=== PATIENT | male | born 1945 | race Caucasian/White ===

== ENCOUNTER 2017-09-08 14:45 | Outpatient (RCR) | payer OTHER ==
[~2017-09-08 14:45] MED LIST: PREDNISONE20 MG PO; ZITHROMAX Z PA250 MG PO
== END 2017-09-11 09:45 | disposition home or self-care (01) ==
LOC: WSPT 14:45
DX: M54.5 Low back pain (principal)

== ENCOUNTER 2021-03-01 05:53 | Emergency (ER) | payer OTHER ==
[~2021-03-01] VITALS: Ht 177.8 cm; Wt 113.6 kg
[2021-03-01 06:20] LABS: BASO # 0.1 K/mm3 (0.0-0.2); BASO % 0.7 % (0.0-2.0); EOS # 0.3 K/mm3 (0.0-0.7); EOS % 4.5 % (0-4.0); GRAN # 4.3 K/mm3 (1.4-6.5); GRAN % 61.5 % (42.2-75.2); HEMOGLOBIN 13.4 g/dl (13.5-18.0); LYMPH # 1.6 K/mm3 (1.2-3.4); LYMPH % 22.7 % (20.0-51.0); MEAN CELL VOLUME 88 fl (80.0-100.0); MEAN CORPUSCULAR HEMOGLOBIN 29 pg (27.0-31.0); MEAN CORPUSCULAR HGB CONC 33 g/dl (33.0-37.0); MEAN PLATELET VOLUME 9.6 fl (7.4-10.4); MONO # 0.7 K/mm3 (0.1-0.6); MONO % 10.2 % (1.7-9.3); PLATELET COUNT 240 K/mm3 (130-400); RED BLOOD COUNT 4.64 M/mm3 (4.20-5.60); REDCELL DISTRIBUTION WIDTH-CV 14.1 % (11.5-14.5)
[2021-03-01 06:36] LABS: ALANINE AMINOTRANSFERASE 12 U/L (0-55); ALBUMIN 3.8 gm/dL (3.4-4.8); ALKALINE PHOSPHATASE 57 U/L (40-150); ANION GAP 8 mmol/L (7-16); AST,SGOT 13 U/L (5-34); BILIRUBIN,TOTAL 0.4 mg/dL (0.2-1.2); BLOOD UREA NITROGEN 22 mg/dL (8-26); CALCIUM 10.1 mg/dL (8.4-10.2); CARBON DIOXIDE 26 mmol/L (23-31); CHLORIDE 105 mmol/L (98-107); CREATININE, serum 1.05 mg/dL (0.72-1.25); GLUCOSE 119 mg/dL (70-99); POTASSIUM 4.1 mmol/L (3.5-4.5); SODIUM 139 mmol/L (136-145); TOTAL PROTEIN 6.6 gm/dL (6.2-8.1)
[2021-03-01 06:45] LABS: TROPONIN-I < 0.010 ng/mL (0.00-0.033)
[2021-03-01 09:25] VITALS: BP 128/71; PULSE 80
== END 2021-03-01 09:33 | disposition home or self-care (01) ==
LOC: COL.ER 05:53
PROVIDERS: Personal Emergency Response Attendant
DX: R07.89 Other chest pain (principal); I10 Essential (primary) hypertension; E11.9 Type 2 diabetes mellitus without complications; Z87.891 Personal history of nicotine dependence

== ENCOUNTER 2021-07-07 12:45 | Emergency (ER) | payer OTHER ==
[~2021-07-07] VITALS: Ht 175.3 cm; Wt 116.4 kg
[2021-07-07 12:56] VITALS: TEMP 97.8
[2021-07-07] MEDS ORDERED: NORCO 325 MG-51 TAB PO (13:47)
[2021-07-07 14:15] VITALS: BP 138/72; PULSE 80
== END 2021-07-07 14:20 | disposition home or self-care (01) ==
LOC: COL.ER 12:45
DX: S82.434A Nondisplaced oblique fracture of shaft of right fibula, initial encounter for closed fracture (principal); W10.9XXA Fall (on) (from) unspecified stairs and steps, initial encounter

== ENCOUNTER → 2021-08-04 | Outpatient (CLI) | payer OTHER ==
[~2021-08-04] MED LIST changes: +NORCO 325 MG-51 TAB PO
== END ==
LOC: COL.RAD 09:31
DX: J98.11 Atelectasis (principal); J98.6 Disorders of diaphragm; K51.919 Ulcerative colitis, unspecified with unspecified complications
CPT/HCPCS: Q9967

== ENCOUNTER → 2021-09-03 | Outpatient (CLI) | payer OTHER | LOC: COL.RAD 11:00 | DX: N28.1 Cyst of kidney, acquired (principal); K51.919 Ulcerative colitis, unspecified with unspecified complications | CPT/HCPCS: Q9967 ==

== ENCOUNTER 2021-11-19 11:23 | Emergency (ER) | payer OTHER ==
[~2021-11-19] VITALS: Ht 177.8 cm; Wt 115.1 kg
[2021-11-19 11:36] VITALS: TEMP 98.6
[2021-11-19] MEDS ORDERED: NORCO 325 MG-51 TAB PO (11:58)
[2021-11-19 12:20] VITALS: BP 136/60; PULSE 87
== END 2021-11-19 12:21 | disposition home or self-care (01) ==
LOC: COL.ER 11:23
DX: M25.511 Pain in right shoulder (principal); X58.XXXA Exposure to other specified factors, initial encounter

== ENCOUNTER 2023-11-21 13:42 | Emergency (ER) | payer OTHER ==
[~2023-11-21] VITALS: Ht 175.3 cm; Wt 110.9 kg
[2023-11-21 13:51] VITALS: TEMP 97.6
[2023-11-21] MEDS ORDERED: NS 1,000 ML IV ONE ×2 (14:15→15:45)
[2023-11-21 14:24] LABS: BASO # 0.1 K/mm3 (0.0-0.2); BASO % 0.7 % (0.0-2.0); EOS # 0.2 K/mm3 (0.0-0.7); EOS % 2.1 % (0.0-4.0); GRAN # 6.8 K/mm3 (1.4-6.5); GRAN % 78.8 % (42.2-75.2); HEMATOCRIT 43.6 % (42.0-52.0); HEMOGLOBIN 14.1 g/dl (13.5-18.0); LYMPH # 0.9 K/mm3 (1.2-3.4); LYMPH % 10.4 % (20.0-51.0); MEAN CELL VOLUME 87 fl (80.0-100.0); MEAN CORPUSCULAR HEMOGLOBIN 28 pg (27-31); MEAN CORPUSCULAR HGB CONC 32 g/dl (33.0-37.0); MEAN PLATELET VOLUME 9.2 fl (7.4-10.4); MONO # 0.6 K/mm3 (0.1-0.6); MONO % 7.4 % (1.7-9.3); PLATELET COUNT 210 K/mm3 (130-400); RED BLOOD COUNT 5.04 M/mm3 (4.20-5.60); REDCELL DISTRIBUTION WIDTH-CV 14.6 % (11.5-14.5)
[2023-11-21 14:41] LABS: ALBUMIN 3.7 g/dL (3.4-4.8); BILIRUBIN,TOTAL 0.6 mg/dL (0.2-1.2); CALCIUM 9.9 mg/dL (8.4-10.2); CREATININE, serum 1.12 mg/dL (0.72-1.25); POTASSIUM 4.3 mEq/L (3.5-4.5); TOTAL PROTEIN 6.5 g/dl (6.2-8.1)
[2023-11-21 16:29] LABS: URINE APPEARANCE CLEAR (CLEAR/HAZY); URINE BLOOD NEGATIVE (NEGATIVE); URINE COLOR YELLOW (YELLOW); URINE GLUCOSE NEGATIVE (NEGATIVE); URINE KETONE TRACE (NEGATIVE); URINE NITRATE NEGATIVE (NEGATIVE); URINE PROTEIN(semi-quant) NEGATIVE (NEGATIVE); URINE UROBILINOGEN 0.2 E.U/dL (0.2-1.0)
[2023-11-21 16:38] LABS: COLLECTION METHOD CLEAN CATCH
[2023-11-21 18:09] VITALS: BP 151/101; PULSE 84
== END 2023-11-21 18:16 | disposition home or self-care (01) ==
LOC: COL.ER 13:42
PROVIDERS: Physician Assistant
DX: E86.0 Dehydration (principal); T50.905A Adverse effect of unspecified drugs, medicaments and biological substances, initial encounter; K11.7 Disturbances of salivary secretion
CPT/HCPCS: J7030